=== PATIENT | female | born 1955 | race Hispanic/Latino ===

== ENCOUNTER → 2018-09-05 | Outpatient (CLI) | payer BC ==
[~2018-09-05] MED LIST: IOPAMIDOL 370 MG/ML 200 ML INFUS..BTL INJ ONE; SODIUM CHLORIDE 0.9% 100 ML 100 ML ONE
[2018-09-05 10:44] LABS: BLOOD UREA NITROGEN 25 mg/dL (7-26); BUN/CREATININE RATIO 34 (6-25); CREATININE, SERUM 0.73 mg/dL (0.57-1.11); EST GLOMERULAR FILTRATION RATE > 60 ML/MIN (60-)
--- NOTE | 2018-09-05 12:06 | Diagnostic Imaging Report ---
EXAMINATION: CT of the abdomen and pelvis with contrast. TECHNIQUE: Spiral CT images of the abdomen and pelvis were performed from the lung bases to the lesser trochanters after the intravenous administration of 100 cc of Isovue-370 and the oral administration of water. Coronal and sagittal reformatted images were obtained. COMPARISON: None. CLINICAL HISTORY:Right lower quadrant pain, epigastric pain, bloating DISCUSSION: ABDOMEN/PELVIS: LOWER THORAX:Subsegmental atelectasis in the dependent portions of the lung bases. Atherosclerotic calcifications of the [place] coronary arteries partially visualized. No pleural or pericardial effusion. HEPATOBILIARY: Hepatic parenchyma is diffusely hypoattenuating compatible with steatosis. No focal hepatic lesion or intrahepatic biliary ductal dilatation. The gallbladder is normal. SPLEEN: No splenomegaly. PANCREAS: No focal masses or ductal dilatation. ADRENALS: No adrenal nodules. KIDNEYS/URETERS: No hydronephrosis, stones, or solid mass lesions. Small cortical defect in the lower pole of the right kidney may represent a congenital lobulation or a sequela of prior infectious-inflammatory process. PELVIC ORGANS/BLADDER: Urinary bladder is incompletely distended but otherwise unremarkable. Uterus is anteflexed with arcuate artery calcifications. No adnexal mass. PERITONEUM/RETROPERITONEUM: No ascites. No pneumoperitoneum. LYMPH NODES: No pelvic sidewall, retroperitoneal, or mesenteric lymphadenopathy. VESSELS: Extensive calcifications of the abdominal aorta, branch vessel origins, and visceral branches without significant stenosis or aneurysmal dilatation. Portal vein and SMV are patent. Splenic vein is diminutive but also patent. Incidental note of a circumaortic left renal vein. 2 left renal arteries and a single right renal artery. GI TRACT: The large bowel shows no distention or wall thickening. Gas and fecal material are noted throughout. The appendix is normal. The stomach is collapsed with prominent rugal folds. No small bowel dilatation to suggest obstruction. BONES AND SOFT TISSUE: Calcified injection granulomata in the subcutaneous fat of the bilateral gluteal regions. Otherwise no focal soft tissue abnormalities. No osseous destructive lesions. Multilevel degenerative disc changes and facet arthropathy of the lumbar spine IMPRESSION: No acute intra-abdominal or pelvic CT abnormalities. Normal appendix. Atherosclerotic vascular disease. Hepatic steatosis. Signed by: Dr. Ruben Bolanos M.D. on 09/05/2018 12:02 PM
== END ==
LOC: CT 09:55
PROVIDERS: ATTEND Internal Medicine Gastroenterology
DX: R10.31 Right lower quadrant pain (principal); R10.13 Epigastric pain; R14.0 Abdominal distension (gaseous)
CPT/HCPCS: 36415; 74177; 82565; 84520; Q9967